=== PATIENT | male | born 1965 ===

== ENCOUNTER 2020-09-30 13:02 | Emergency (ER) | payer OTHER ==
[~2020-09-30] VITALS: Ht 177.8 cm; Wt 115.7 kg
[2020-09-30] MEDS ORDERED: GLIMEPIRIDE4 M1 (14:21)
[2020-09-30] MEDS ORDERED: VALSARTAN320 MG (14:21)
[2020-09-30] MEDS ORDERED: ZOLPIDEM 10 MG (14:22)
== END 2020-09-30 15:45 | disposition home or self-care (01) ==
LOC: ER 13:02
DX: R13.19 Other dysphagia (principal)